=== PATIENT | male | born 1980 | race African-American/Black ===

== ENCOUNTER 2022-02-21 09:26 | Outpatient (CLI) | payer OTHER, SELFPAY ==
[2022-02-21 11:15] LABS: Liquefaction Semen Complete in 30 min. (<30 minutes); Semen Color Opaque (Grey-opaque); Semen Immotility 10 %; Semen Non-Progressive Motility 20 %; Semen Progressive Motility 70 % (>32); Semen Total Motility 90 (>40% (PM+NP)); Semen Viscosity Not Increased (Not Increa.); pH Semen 8.5 (7.2-8.0)
[2022-02-21 11:16] LABS: Semen Morphology Result to Follow; Sperm Count 6.8 Mil/mL (60-150 million/mL)
[2022-02-27 20:11] LABS: Fructose, Semen 290 mg/dL (150-600)
== END 2022-02-21 09:27 | disposition home or self-care (01) ==
LOC: CHSLAB 09:29
PROVIDERS: Visit Provider Obstetrics & Gynecology
DX: Z31.41 Encounter for fertility testing (principal)
CPT/HCPCS: 82757; 88160; 89320